=== PATIENT | male | born 1950 | race African-American/Black ===

== ENCOUNTER 2018-11-13 17:56 | Emergency (ER) | payer OTHER ==
[~2018-11-13] VITALS: Ht 195.6 cm; Wt 118.9 kg
[2018-11-13 18:38] LABS: BASOPHILS # (AUTO) 0.04 x10^3/uL (0-0.1); BASOPHILS % (AUTO) 1 % (0-1); EOSINOPHILS # (AUTO) 0.67 x10^3/uL (0-0.4); EOSINOPHILS % (AUTO) 13 % (1-7); LYMPHOCYTES # (AUTO) 1.13 x10^3/uL (1-3.4); LYMPHOCYTES % (AUTO) 21 % (22-44); MD NO; MEAN CORPUSCULAR HEMOGLOBIN 33.7 pg (27.5-34.5); MEAN CORPUSCULAR VOLUME 99.1 fL (81-97); MEAN PLATELET VOLUME 9.4 fL (7.4-10.4); MONOCYTES # (AUTO) 0.59 x10^3/uL (0.2-0.8); MONOCYTES % (AUTO) 11 % (2-9); NEUTROPHILS % (AUTO) 54 % (42-75); PLATELET COUNT 180 x10^3/uL (130-400); RED BLOOD COUNT 5.15 x10^6/uL (4.38-5.82); RED CELL DISTRIBUTION WIDTH 13.1 % (9.4-14.8)
--- NOTE | 2018-11-13 18:45 | NUR ---
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
[2018-11-13 18:54] LABS: ALBUMIN 3.7 g/dL (3.4-5.0); ANION GAP 9 mmol/L (5-15); CHLORIDE 111 mmol/L (98-107)
[2018-11-13 18:57] LABS: ALANINE AMINOTRANSFERASE 24 U/L (12-78); ALKALINE PHOSPHATASE 90 U/L (45-117); BILIRUBIN,TOTAL 0.6 mg/dL (0.2-1.0); CREATININE 1.14 mg/dL (0.7-1.3); TOTAL PROTEIN 7.9 g/dL (6.4-8.2); TROPONIN I < 0.015 ng/mL (0.000-0.045)
[2018-11-13] MEDS ORDERED: MECLIZINE CHEWABLE 25 MG TAB ONE (18:58)
[2018-11-13] MEDS ORDERED: methylPREDNISolone SOD SUCC 125 MG/2 ML ONE (18:59)
[2018-11-13] MEDS ORDERED: MECLIZINE CHEWABLE 25 MG TAB PO ONE (19:00)
[2018-11-13] MEDS ORDERED: SODIUM CHLORIDE 0.9% 1,000ML IVBOLUS ONE (19:00)
[2018-11-13] MEDS ORDERED: methylPREDNISolone SOD SUCC 125 MG/2 ML IVPush ONE (19:00)
[2018-11-13] MEDS ORDERED: ALBUTEROL/IPRATROPIUM 2.5MG/0.5MG, 3 ML NPPB ONE (19:00)
[2018-11-13] MEDS ORDERED: ALBU0.63 NEB (19:46)
[2018-11-13] MEDS ORDERED: FLUT1DIS5 IH (19:46)
[2018-11-13] MEDS ORDERED: MULTIVITAMIN PO (19:46)
[2018-11-13] MEDS ORDERED: TAMS-11 PO (19:46)
--- NOTE | 2018-11-13 20:11 | NUR ---
PT AMBULATED DOWN HALLWAY AND BACK INTO BED. PT WITH STEADY GAIT. PT STATES WELL ENOUGH TO GO HOME. INFORMED.
[2018-11-13 20:23] VITALS: BP 126/74
== END 2018-11-13 20:52 | disposition home or self-care (01) ==
LOC: ED 19:40
DX: R55 Syncope and collapse (principal); J45.41 Moderate persistent asthma with (acute) exacerbation; E86.1 Hypovolemia
CPT/HCPCS: 36415; 71045; 80053; 83690; 83880; 84484; 85025; 93005; 94640; 94664; 96361; 96374; 99284; J2930; J7030; J7620